=== PATIENT | male | born 1985 | race Caucasian/White ===

== ENCOUNTER 2021-04-02 09:28 | Outpatient (CLI) | payer OTHER, SELFPAY ==
--- NOTE | ~2021-04-02 | MR_ITS ---
EXAMINATION: MR brain/brain stem wo/w con DATE: 04/02/2021 10:46 INDICATION: Altered mental status, unspecified. TECHNIQUE: Magnetic resonance imaging (MRI) of the brain and brainstem was performed without and with 12 mL MultiHance intravenous contrast. Sequences included sagittal and axial T1-weighted FSE, axial diffusion-weighted FS EPI, axial T2*-weighted GRE, axial T2-weighted FLAIR Propeller, and axial T2-we ighted Propeller. Postcontrast sequences included axial, sagittal, and coronal T1-weighted FSE. Appar ent diffusion coefficient (ADC) maps were created. COMPARISON: None. FINDINGS: There are scattered areas of nonspecific increased T2-weighted signal intensity in the cere bral white matter. No infratentorial lesions. There is no acute ischemic infarct or intracranial hemo rrhage. 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 The ventricles are normal in size. There is mild mucosal thickening in the ethmoid sinuses. The orbits are normal. The mastoid air cells are normal. IMPRESSION: 1. Moderate nonspecific cerebral white matter disease. The differential diagnosis includes premature chronic small vessel ischemic disease (especially if the patient has cardiovascular risk factors), de myelinating disease such as multiple sclerosis, drug abuse, vasculitis, or reactive astrocytosis (gli osis) secondary to nonspecific etiology. Reviewed, dictated and finalized at location A. IMPRESSION: 1. Moderate nonspecific cerebral white matter disease. The differential diagnos is includes premature chronic small vessel ischemic disease (especially if the patient has cardiovascular risk factors), demyelinating disease such as multipl e sclerosis, drug abuse, vasculitis, or reactive astrocytosis (gliosis) seconda ry to nonspecific etiology.
== END 2021-04-02 09:29 | disposition home or self-care (01) ==
PROVIDERS: PCP Family Medicine; Visit Provider Family Medicine
DX: R41.82 Altered mental status, unspecified (principal); R41.3 Other amnesia
CPT/HCPCS: 70553; A9577

== ENCOUNTER 2021-05-06 14:15 | Outpatient (CLI) | payer OTHER, MEDICAID, SELFPAY ==
[2021-05-06 15:46] LABS: Creatine Kinase 23 U/L (55-170)
[2021-05-06 16:54] LABS: Folic Acid > 20.0 ng/mL (2.76->20)
[2021-05-08 14:14] LABS: Homocysteine 11.5 umol/L (<11.4)
[2021-05-09 15:21] LABS: Vitamin B6 94.8 ng/mL (2.1-21.7)
[2021-05-09 21:52] LABS: SM Antibody <1.0; SM/RNP Antibody <1.0
[2021-05-10 00:24] LABS: Alpha-Tocopherol 11.8 mg/L (5.7-19.9); Beta-Gamma Tocopherol <1.0 mg/L (<=4.3)
[2021-05-10 04:23] LABS: Kappa\\Lambda Light Chains 1.16 (0.26-1.65); Lambda Light Chain 24.4 mg/L (5.7-26.3)
[2021-05-10 06:53] LABS: Alpha 1 Globulin 0.3 g/dL (0.2-0.3); Alpha 2 Globulin 0.8 g/dL (0.5-0.9); Beta 1 Globulin 0.5 g/dL (0.4-0.6); Gamma Globulin 1.1 g/dL (0.8-1.7); Protein, Total 7.1 g/dL (6.1-8.1)
[2021-05-11 11:42] LABS: Vitamin B1 73 nmol/L (8-30)
== END 2021-05-06 14:16 | disposition home or self-care (01) ==
LOC: ANHIMG 14:21
PROVIDERS: PCP Family Medicine
DX: F03.90 Unspecified dementia, unspecified severity, without behavioral disturbance, psychotic disturbance, mood disturbance, and anxiety (principal); G60.3 Idiopathic progressive neuropathy; R41.3 Other amnesia
CPT/HCPCS: 36415; 82525; 82550; 82607; 82746; 83090; 83520; 83883; 84155; 84165; 84207; 84425; 84446; 86038; 86235

== ENCOUNTER 2021-11-14 11:01 | Outpatient (CLI) | payer OTHER, SELFPAY ==
[2021-11-14 11:21] LABS: Basophils Absolute Auto 0.1 K/mm3 (0.0-0.1); Basophils Percent Auto 0.8 % (0.2-1.2); Eosinophils Absolute Auto 0.1 K/mm3 (0-0.3); Eosinophils Percent Auto 1.5 % (0-4.4); Hematocrit 41.7 % (42.0-52.0); Immature Granulocyte Absolute 0.04 K/mm3 (0.00-0.031); Immature Granulocyte Percent A 0.4 % (0-0.5); Lymphocytes Absolute Auto 2.55 K/mm3 (0.9-3.2); Lymphocytes Percent Auto 27.4 % (18.3-44.2); Mean Corpuscular HGB Conc 33.6 g/dl (32-36); Mean Corpuscular Hemoglobin 31.3 pg (26-34); Mean Corpuscular Volume 93.3 fl (80-100); Mean Platelet Volume 9.8 fl (7.4-10.4); Monocytes Absolute Auto 0.7 K/mm3 (0.1-0.6); Monocytes Percent Auto 7.9 % (2.6-8.5); Neutrophils Absolute Auto 5.8 K/mm3 (1.3-6.7); Platelet Count Result 198 k/mm3 (150-375); Red Blood Count 4.47 M/mm3 (4.6-6.20); Red Cell Distribution Width 12.2 % (11.5-14.5); White Blood Count 9.3 K/mm3 (4.5-10.0)
[2021-11-14 11:41] LABS: Alanine Aminotransferase 24 U/L (6-50); Albumin Level 4.1 g/dL (3.5-5.1); Alkaline Phosphatase 71 U/L (38-126); Anion Gap 9 mmol/L (8-16); Aspartate Amino Transferase 30 U/L (17-59); Bilirubin,Total 2.3 mg/dL (0.2-1.3); Blood Urea Nitrogen 17 mg/dL (9-20); Calcium 9.3 mg/dL (8.4-10.2); Carbon Dioxide 26 mmol/L (22-30); Chloride 106 mmol/L (98-107); Cholesterol 165 mg/dL (0-200); Estimated Glomerular Filt Rate > 60; Glucose 102 mg/dL (65-110); HDL Direct 38 mg/dL; Potassium 4.3 mmol/L (3.4-5.0); Sodium 141 mmol/L (137-145); Triglycerides 133 mg/dL (<150)
[2021-11-14 11:47] LABS: LDL Cholesterol Direct 101 mg/dL
[2021-11-14 12:01] LABS: Vitamin D 25 Hydroxy 49.3 ng/mL
[2021-11-14 12:58] LABS: Free T4 Free Thyroxine Reflex 1.15 ng/dL (0.78-2.19)
[2021-11-14 13:45] LABS: Total Triiodothyronine (T3) 3.44 NG/ML (0.97-1.69)
== END 2021-11-14 11:02 | disposition home or self-care (01) ==
LOC: ANHLAB 11:04
PROVIDERS: PCP Family Medicine; Visit Provider Family Medicine
DX: E78.5 Hyperlipidemia, unspecified (principal); R41.3 Other amnesia; M62.81 Muscle weakness (generalized); G43.011 Migraine without aura, intractable, with status migrainosus; E55.9 Vitamin D deficiency, unspecified; Z00.00 Encounter for general adult medical examination without abnormal findings
CPT/HCPCS: 36415; 80053; 80061; 82306; 84439; 84443; 84480; 85025

== ENCOUNTER 2021-11-19 08:44 | Outpatient (CLI) | payer OTHER, SELFPAY ==
--- NOTE | ~2021-11-19 | XR_ITS ---
EXAMINATION: XR barium swallow DATE: 11/19/2021 12:33 CDT INDICATION: Dysphagia. TECHNIQUE: Contrast was administered orally. Fluoroscopic images of the esophagus were obtained in v arious projections. The hypopharynx was also examined. Thereafter, overhead images of the thoracic es ophagrus were performed. Fluroscopy time 0.8 minutes of fluoroscopy.42 fluoroscopic images. FINDINGS: The esophagus is normal in caliber, without mucosal lesions or strictures. There is normal esophageal peristalsis. There is no hiatal hernia. No discreet episode of gastroesophageal reflux i s seen during the course of this study. IMPRESSION: 1. Normal esophagram. Reviewed, dictated and finalized at location A. IMPRESSION: 1. Normal esophagram.
== END 2021-11-19 08:45 | disposition home or self-care (01) ==
PROVIDERS: PCP Family Medicine; Visit Provider Otolaryngology
DX: R13.12 Dysphagia, oropharyngeal phase (principal)
CPT/HCPCS: 74220

== ENCOUNTER 2022-03-05 09:38 | Outpatient (RCR) | payer OTHER, SELFPAY ==
--- NOTE | 2022-03-05 11:52 | STOPEVAL1 ---
Evaluation Information Assessment Status Evaluation Reported Pain Level Pain Score 0: Self Report Assessment ST Clinical Summary Rommel Grant is a 36 year old male who was referred to our practice due to concerns of increasing difficulty in swallowing solid food, specifically meat or tougher/fibrous foods. 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 Patient's father describes history of being malnourished and weak due to poor diet and drinking too much alcohol. Patient also has poor dentition that requires increased time to masticate bolus entirely. Patient describes getting easily distracted while eating and subsequently eating too fast or not chewing bolus entirely. Patient completed an oral mechanism examination and demonstrated no gross weakness or decrease in range of motion in lingual or labial function. However, patient's poor dentition is likely an contributing factor in his increase in difficulty to consume tougher foods. Patient also completed the Eating Assessment Tool (EAT-10) and scored a 22 out of 40, indicating patient anxiety to eat with unfamiliar people and interference in going out for meals. During swallow trials, patient consumed 3mL of water, puree, and armida cracker with no overt clinical signs of dysphagia or aspiration. Recommend patient to complete Modified Barium Swallow Study in order to determine appropriate skilled ST interventions and treat as indicated. These treatments will address the objective and functional deficits as defined above. The patient will be advanced safely and appropriately in order for the patient to progress towards his/her prior level of function. Additional exercises will be introduced and as well as a comprehensive home exercise program upon discharge, if needed, ?to ensure carryover of functional gains achieved in the clinic. This treatment plan has been reviewed and agreement upon by the patient.
--- NOTE | 2022-04-21 11:27 | STOPDC ---
Discharge Summary: Rommel Grant will d/c from [facility] services at this time. Patient's oropharyngeal swallow is within normal limits as determined through his recent modified barium swallow study. Patient and father have received education on compensatory swallowing strategies to use to improve ability to swallow with ease. Thank you for this referral. Assessment and note entered by Qi Burroughs, [employer] WORKER
== END 2022-04-22 13:19 | disposition home or self-care (01) ==
LOC: ANHGOSHST 09:38
PROVIDERS: PCP Family Medicine; Visit Provider Otolaryngology
DX: R13.12 Dysphagia, oropharyngeal phase (principal)
CPT/HCPCS: 92610

== ENCOUNTER 2022-03-14 09:39 | Outpatient (CLI) | payer OTHER, SELFPAY ==
--- NOTE | ~2022-03-14 | XR_ITS ---
MODIFIED ESOPHAGRAM HISTORY: Dysphagia. TECHNIQUE: Modified barium esophagram was performed on 03/14/2022. I administered fluoroscopy and perf ormed the exam with speech pathologist. Patient was seated for lateral fluoroscopic imaging for krishan stion of thin liquids, pudding, solids and quantified amounts, followed by thin liquids in uncontroll ed amounts. This was recorded on tape. A single fluoroscopic spot image was also recorded. The DAP fo r this procedure was 1.833 Gycm2. The amount of fluoroscopy time used during this procedure was 2.8 m inutes. FINDINGS: Oral stage: Adequate function. Pharyngeal stage: Adequate function. Cervical/esophageal stage: Adequate function. IMPRESSION: Patient tolerated regular consistency oral feedings in the upright position. Please mik elate with speech pathologist findings and specific feeding recommendations. Reviewed, dictated and finalized at location A. IMPRESSION: Patient tolerated regular consistency oral feedings in the upright position. Please correlate with speech pathologist findings and specific feedi ng recommendations.
--- NOTE | 2022-03-14 10:49 | REHSTMBS ---
Addendum entered by LOKESH Pemberton 03/14/22 10:49: THANK YOU FOR THIS REFERRAL. FAX TO DR SANDRA: [phone] Original Note: Assessment and note entered by LOKESH Pemberton Modified Barium Swallow Evaluation Feeding Type Recommended Oral Food Consistency Regular, Easy to Chew (7) Liquid Consistency Thin (0) ST Clinical Summary The patient was viewed in a lateral position when presented with 5cc of thin liquid barium via spoon , pudding consistency barium via a spoon, mixed liquid/solid consistency via spoon, cracker coated with barium pudding via spoon, and uncontrolled thin liquid barium. This was presented via a cup & straw. Oral preparatory and oral phase symptoms : none. Pt chewed excessively but no loss of bolus, leakage, or pocketing occurred. Pharyngeal phase symptoms: none. Esophageal stage symptoms: none. No aspiration occurred. Impressions: Normal swallow Ability No further ST is warranted at this time.
== END 2022-03-14 09:40 | disposition home or self-care (01) ==
PROVIDERS: PCP Family Medicine; Visit Provider Otolaryngology
DX: K21.9 Gastro-esophageal reflux disease without esophagitis (principal); R13.12 Dysphagia, oropharyngeal phase
CPT/HCPCS: 92611

== ENCOUNTER 2022-05-13 11:32 | Outpatient (CLI) | payer OTHER, SELFPAY ==
[2022-05-14 21:59] LABS: Thyroid Stimulating Hormone Reflex 0.591 uIU/mL (0.465-4.68)
== END 2022-05-13 11:33 | disposition home or self-care (01) ==
LOC: ANHGOSHLAB 11:33
PROVIDERS: PCP Family Medicine; Visit Provider Family Medicine
DX: R79.89 Other specified abnormal findings of blood chemistry (principal)
CPT/HCPCS: 36415; 84443

== ENCOUNTER 2022-11-14 09:43 | Outpatient (CLI) | payer OTHER, SELFPAY ==
[2022-11-14 14:19] LABS: Basophils Absolute Auto 0.1 K/mm3 (0.0-0.1); Basophils Percent Auto 0.7 % (0.2-1.2); Eosinophils Absolute Auto 0.2 K/mm3 (0-0.3); Eosinophils Percent Auto 1.8 % (0-4.4); Hematocrit 44.4 % (42.0-52.0); Hemoglobin 14.9 g/dL (14.0-18.0); Immature Granulocyte Absolute 0.02 K/mm3 (0.00-0.031); Immature Granulocyte Percent A 0.2 % (0-0.5); Lymphocytes Absolute Auto 3.19 K/mm3 (0.9-3.2); Lymphocytes Percent Auto 36.8 % (18.3-44.2); Mean Corpuscular HGB Conc 33.6 g/dl (32-36); Mean Corpuscular Hemoglobin 31.2 pg (26-34); Mean Corpuscular Volume 92.9 fl (80-100); Mean Platelet Volume 10.4 fl (7.4-10.4); Monocytes Absolute Auto 0.6 K/mm3 (0.1-0.6); Neutrophils Absolute Auto 4.6 K/mm3 (1.3-6.7); Neutrophils Percent Auto 53.5 % (45.5-73.1); Platelet Count Result 192 k/mm3 (150-375); Red Blood Count 4.78 M/mm3 (4.6-6.20); Red Cell Distribution Width 12.1 % (11.5-14.5); White Blood Count 8.7 K/mm3 (4.5-10.0)
[2022-11-14 14:33] LABS: Alanine Aminotransferase 24 U/L (6-50); Albumin Level 4.5 g/dL (3.5-5.1); Alkaline Phosphatase 81 U/L (38-126); Anion Gap 4 mmol/L (8-16); Aspartate Amino Transferase 45 U/L (17-59); Bilirubin,Total 2.2 mg/dL (0.2-1.3); Blood Urea Nitrogen 19 mg/dL (9-20); Calcium 9.1 mg/dL (8.4-10.2); Carbon Dioxide 34 mmol/L (22-30); Chloride 102 mmol/L (98-107); Cholesterol 180 mg/dL (0-200); Estimated Glomerular Filt Rate > 60; Glucose 99 mg/dL (65-110); HDL Direct 46 mg/dL; Potassium 4.4 mmol/L (3.4-5.0); Sodium 140 mmol/L (137-145); Triglycerides 140 mg/dL (<150)
[2022-11-14 14:51] LABS: LDL Cholesterol Direct 115 mg/dL
[2022-11-14 15:23] LABS: Vitamin D 25 Hydroxy 38.8 ng/mL
== END 2022-11-14 09:44 | disposition home or self-care (01) ==
LOC: ANHGOSHLAB 09:44
PROVIDERS: PCP Family Medicine; Visit Provider Family Medicine
DX: Z00.00 Encounter for general adult medical examination without abnormal findings (principal); E55.9 Vitamin D deficiency, unspecified; E78.5 Hyperlipidemia, unspecified; G43.011 Migraine without aura, intractable, with status migrainosus; R41.3 Other amnesia; R90.82 White matter disease, unspecified; E53.8 Deficiency of other specified B group vitamins; F32.A Depression, unspecified; F41.9 Anxiety disorder, unspecified; R13.10 Dysphagia, unspecified
CPT/HCPCS: 36415; 80053; 80061; 82306; 82607; 84443; 85025

== ENCOUNTER 2023-11-13 08:35 | Outpatient (CLI) | payer OTHER, SELFPAY ==
[2023-11-13 09:23] LABS: Alanine Aminotransferase 25 U/L (6-50); Albumin Level 4.7 g/dL (3.5-5.1); Alkaline Phosphatase 74 U/L (38-126); Anion Gap 10 mmol/L (4-12); Aspartate Amino Transferase 27 U/L (17-59); Basophils Absolute Auto 0.1 K/mm3 (0.0-0.1); Basophils Percent Auto 0.7 % (0.2-1.2); Bilirubin,Total 2.1 mg/dL (0.2-1.3); Blood Urea Nitrogen 21 mg/dL (9-20); Calcium 9.5 mg/dL (8.4-10.2); Carbon Dioxide 28 mmol/L (22-30); Chloride 104 mmol/L (98-107); Cholesterol 176 mg/dL (0-200); Eosinophils Absolute Auto 0.1 K/mm3 (0-0.3); Eosinophils Percent Auto 1.6 % (0-4.4); Estimated Glomerular Filt Rate > 60; Glucose 117 mg/dL (65-110); HDL Direct 41 mg/dL; Hematocrit 43.9 % (42.0-52.0); Hemoglobin 14.7 g/dL (14.0-18.0); Immature Granulocyte Absolute 0.02 K/mm3 (0.00-0.031); Immature Granulocyte Percent A 0.2 % (0-0.5); Lymphocytes Absolute Auto 3.35 K/mm3 (0.9-3.2); Lymphocytes Percent Auto 40.4 % (18.3-44.2); Mean Corpuscular HGB Conc 33.5 g/dl (32-36); Mean Corpuscular Hemoglobin 30.8 pg (26-34); Mean Platelet Volume 10.3 fl (7.4-10.4); Monocytes Absolute Auto 0.7 K/mm3 (0.1-0.6); Neutrophils Absolute Auto 4.1 K/mm3 (1.3-6.7); Neutrophils Percent Auto 49.1 % (45.5-73.1); Platelet Count Result 210 k/mm3 (150-375); Potassium 3.8 mmol/L (3.4-5.0); Red Blood Count 4.77 M/mm3 (4.6-6.20); Red Cell Distribution Width 12.7 % (11.5-14.5); Sodium 142 mmol/L (137-145); Triglycerides 132 mg/dL (<150); White Blood Count 8.3 K/mm3 (4.5-10.0)
[2023-11-13 09:35] LABS: LDL Cholesterol Direct 121 mg/dL
[2023-11-13 10:09] LABS: Hemoglobin A1C 4.8 % (<5.7)
[2023-11-13 10:17] LABS: Vitamin B12 > 1000.0 pg/mL (239-931)
[2023-11-17 10:18] LABS: Vitamin D 1,25 (OH)2 Total 33 pg/mL (18-72); Vitamin D2 1,25 (OH)2 <8 pg/mL; Vitamin D3 1,25 (OH)2 33 pg/mL
== END 2023-11-13 08:36 | disposition home or self-care (01) ==
LOC: ANHLAB 08:36
PROVIDERS: PCP Family Medicine; Visit Provider Nurse Practitioner Family
DX: Z00.00 Encounter for general adult medical examination without abnormal findings (principal); E53.8 Deficiency of other specified B group vitamins; E55.9 Vitamin D deficiency, unspecified; F32.A Depression, unspecified; F41.9 Anxiety disorder, unspecified; G43.011 Migraine without aura, intractable, with status migrainosus; M62.81 Muscle weakness (generalized); R13.12 Dysphagia, oropharyngeal phase; R41.3 Other amnesia; R73.03 Prediabetes; E78.5 Hyperlipidemia, unspecified; Z13.29 Encounter for screening for other suspected endocrine disorder
CPT/HCPCS: 36415; 80053; 80061; 82607; 82652; 83036; 84443; 85025

== ENCOUNTER 2023-12-03 07:22 | Outpatient (CLI) | payer OTHER, SELFPAY ==
--- NOTE | ~2023-12-03 | US_ITS ---
US abdomen complete EXAMINATION: US Abdomen Complete INDICATION: Jaundice PROCEDURE: Realtime High Resolution abdomen ultrasound. COMPARISON: No prior studies for comparison FINDINGS: There are gallbladder polyps, largest measuring 9 mm. Common bile duct measures 3 mm. Liver echotexture within normal limits without focal mass. Pancreas within normal limits. Pancreati c tail is obscured by bowel gas. Spleen is unremarkeable. Renal echotexture is within normal limits bilaterally without hydronephrosis, contour deforming mass or renal stone. Right kidney measures 10 c m. Left kidney measures 9.7 cm. Visualized aspects of the aorta and IVC are within normal limits. Portal vein is patent. No sonograph ic Velásquez's sign indicated by the technologist. IMPRESSION: 1: Gallbladder polyps. Reviewed, dictated and finalized at location B. IMPRESSION: 1: Gallbladder polyps.
== END 2023-12-03 07:23 | disposition home or self-care (01) ==
PROVIDERS: PCP Family Medicine; Visit Provider Nurse Practitioner
DX: R17 Unspecified jaundice (principal); K82.4 Cholesterolosis of gallbladder
CPT/HCPCS: 76700

== ENCOUNTER 2024-05-12 07:15 | Outpatient (CLI) | payer OTHER, SELFPAY ==
--- NOTE | ~2024-05-12 | US_ITS ---
EXAMINATION: US abdomen limited DATE: 05/12/2024 08:09 INDICATION: Cholesterolosis of the gallbladder. TECHNIQUE: Multiple grayscale and Doppler ultrasound images of the abdomen were obtained. COMPARISON: Abdomen ultrasound 12/03/23 FINDINGS: The visualized portions of the head and body of the pancreas are normal. There is diffuse h epatic steatosis. There is normal flow in main portal vein. The gallbladder is normal in size and con tains stones. No gallbladder wall thickening or sonographic Velásquez sign. The common duct is normal an d measures 6 mm. IMPRESSION: 1. Cholelithiasis. No evidence of acute cholecystitis. Reviewed, dictated and finalized at location A. ER PUNCH OPERATOR
== END 2024-05-12 07:16 | disposition home or self-care (01) ==
LOC: ANHIMG 07:15
PROVIDERS: PCP Family Medicine; Visit Provider Nurse Practitioner Family
DX: R17 Unspecified jaundice (principal); K82.4 Cholesterolosis of gallbladder
CPT/HCPCS: 36415; 76705; 82248